=== PATIENT | female | born 1970 | race Asian ===

== ENCOUNTER → 2016-09-08 | Outpatient (CLI) | payer OTHER ==
[~2016-09-08] MED LIST: ACETAMINOPHEN650 M2 PO; CIPRO PO; FERROUS SULFATE PO; LEVAQUIN PO; PERCOCET 5-3251 TAB PO; PHENERGAN25 MG PO
[2016-09-08 13:25] LABS: THYROID STIMULATING HORMONE 1.62 uIU/ml (0.34-5.60)
[2016-09-08 13:32] LABS: FREE THYROXIN (T4) 0.78 ng/dL (0.58-1.64)
== END | disposition home or self-care (01) ==
LOC: CLAB 11:35
PROVIDERS: Surgery Surgical Oncology
DX: R53.83 Other fatigue (principal); E21.0 Primary hyperparathyroidism
CPT/HCPCS: 36415; 82306; 82310; 83970; 84439; 84443

== ENCOUNTER → 2016-09-13 | Outpatient (CLI) | payer OTHER ==
[2016-09-13 10:59] LABS: URINE CREATININE 28.6 mg/dL
[2016-09-13 11:05] LABS: URINE 24 HOUR CREATININE CALC 0.8 G/24HR (0.7-2.0)
[2016-09-15 02:55] LABS: URINE CALCIUM 11.8 mg/dL (())
== END | disposition home or self-care (01) ==
LOC: CLAB 08:59
PROVIDERS: Surgery Surgical Oncology
DX: E21.0 Primary hyperparathyroidism (principal); R53.83 Other fatigue
CPT/HCPCS: 82340; 82570